=== PATIENT | female | born 1970 | race Caucasian/White ===

== ENCOUNTER 2025-02-17 09:56 | Inpatient (IN) | payer BC ==
[~2025-02-17] VITALS: Ht 167.6 cm; Wt 93.2 kg
--- NOTE | 2025-02-17 10:06 | Physician Documentation ---
History of Present Illness ~ Chief Complaint: Constipation Stated Complaint: PRESSURE IN ABD Time Seen by MD: 10:30 HPI This 54 yr old female presents to the ER due to issues with chronic constipation, worse x last three days. This is accompanied by nausea, vomiting, and epigastric pain with chills but no fever. Hx cholecystectomy. Has been using castor oil x last three days but remains constipated. She also endorses "left kidney pain" but denies dysuria. Admits to regular kratum use and notes hx of diabetes and Grave's disease. Admits to only taking half dose of thyroid medication recently due to cost. Medication Reconciliation Allergies: Coded Allergies: No Known Allergies (Unverified , 02/17/25) Physical Exam Vital Signs: Temperature: 98.3, Source: Temporal, Heart Rate: 82, Respiratory Rate: 16, BP: 124/75, Pulse Oximetry: 99, Weight: 93.180 Oxygen Flow Rate: 0 Physical Exam General: Alert, no apparent distress. Neck: Full range of motion. Respiratory: Lungs clear, no respiratory distress. Chest: No accessory muscle use. Cardiovascular: Regular rate and rhythm, no murmurs. Gastrointestinal: Soft,mildly TTP upper abd, nondistended. Bowels sounds present. No CVA tenderness. Extremities: Normal range of motion, no deformity. Neurologic: Oriented x4. Psychiatric: Normal mood and affect. Skin: Normal color, warm and dry. No edema, no ecchymosis. Progress Results/Orders Results/Orders Orders - RENEE YATES DIRECTOR MEDICAL SCIENCE Abdomen,Single View(Kub) (02/17/25 10:03) Bisacodyl Delayed-Release Tab (Dulcolax (02/17/25 11:05) * Iv Access / Saline Lock * (02/17/25 11:16) * Administer Enema * (02/17/25 11:41) Page Hospitalist (02/17/25 12:03) Completed Orders - RENEE YATES DIRECTOR MEDICAL SCIENCE Abdomen,Single View(Kub) (02/17/25 10:03) Urinalysis, Cult If Indicated (02/17/25 10:03) Lipase (02/17/25 10:03) CMP (02/17/25 10:03) Cbc/Diff (02/17/25 10:03) Magnesium Hydrox Oral Susp. (Milk Of Mag (02/17/25 11:05) TSH (02/17/25 10:37) Electrocardiogram (02/17/25 ) Normal Saline 1000ml (Sodium Chloride 10 (02/17/25 11:20) Ondansetron Inj. (Zofran 4mg/2ml Vial) (02/17/25 11:20) MG (02/17/25 10:37) Hydrocodone/Apap 5/325mg Tab ([place] 5/32 (02/17/25 11:45) Medications Received in ER Medications (Trade) Dose Ordered Sig/William Route PRN Reason Start Time Stop Time Status Last Admin Dose Admin (milk of magnesia oral suspension) 30 ml ONCE ONCE PO 02/17/25 11:05 02/17/25 11:06 DC 02/17/25 11:36 30 ML (Dulcolax tablet) 5 mg ONCE PRN PO constipation 02/17/25 11:05 02/17/25 12:21 5 MG Sodium Chloride 1,000 ml @ 1,000 mls/hr ONCE ONCE IV 02/17/25 11:20 02/17/25 12:19 DC 02/17/25 11:35 1,000 MLS/HR (Zofran 4mg/2ml vial) 4 mg ONCE ONCE IV 02/17/25 11:20 02/17/25 11:21 DC 02/17/25 11:35 4 MG ([place] 5/325mg tablet) 1 tab ONCE ONCE PO 02/17/25 11:45 02/17/25 11:46 DC 02/17/25 12:21 1 TAB Vital Signs 02/17/25 10:00 Temp 98.3 Pulse 82 Resp 16 B/P (MAP) 124/75 Pulse Ox 99 O2 Flow Rate 0 Laboratory Tests Test 02/17/25 10:10 02/17/25 10:37 Urine Specimen Description Cln catch midstream Urine Color Yellow Urine Clarity Clear Urine pH 6.0 Urine Specific [place] <=1.005 Urine Protein Negative Urine Glucose (UA) Negative Urine Ketones Negative Urine Occult Blood Negative Urine Nitrite Negative Urine Bilirubin Negative Urine Urobilinogen 0.2 Urine Leukocyte Esterase Negative Urine Culture Indicated Not ind Volume Urine Centrifuged 10 ml Urine Comment White Blood Count 7.3 Red Blood Count 4.33 Hemoglobin 13.4 Hematocrit 38.5 Mean Corpuscular Volume 88.8 Mean Corpuscular Hemoglobin 31.0 Mean Corpuscular Hemoglobin Concent 34.9 Red Cell Distribution Width 14.5 Platelet Count 289 Mean Platelet Volume 8.7 Neutrophils (%) (Auto) 57.6 Lymphocytes (%) (Auto) 35.1 Monocytes (%) (Auto) 3.8 Eosinophils (%) (Auto) 2.9 Basophils (%) (Auto) 0.6 Neutrophils # (Auto) 4.2 Lymphocytes # (Auto) 2.6 Monocytes # (Auto) 0.3 Eosinophils # (Auto) 0.2 Basophils # (Auto) 0.0 CBC Comment Sodium Level 126 L Potassium Level 4.5 Chloride Level 92 L Carbon Dioxide Level 26.8 Anion Gap 7 L Blood Urea Nitrogen 5 L Creatinine 1.08 H Estimated GFR/1.73 m2 53 BUN/Creatinine Ratio 4.6 L Glucose Level 324 H Calcium Level 8.4 L Magnesium Level 1.6 Total Bilirubin 0.6 Aspartate Amino Transf (AST/SGOT) 21 Alanine Aminotransferase (ALT/SGPT) 22 Alkaline Phosphatase 72 Total Protein 7.3 Albumin 3.8 Globulin 3.5 Albumin/Globulin Ratio 1.1 Lipase 9 L Thyroid Stimulating Hormone (TSH) 88.82 H Chemistry Comments EKG/XRAY/CT/US/VASC/MRI EKG : Additional Comment 1120 EKG interpreted to show RSR rate of 67. No ectopy. No ST segment elevation. QTC 448 ms. Abdominal X-Ray : Additional Comment [facility] [address] [place] [address] DIAGNOSTIC RADIOLOGY Patient: ROMAN RAMIREZ Medical Record: [id number] [facility] : 1970, Age: 54 Sex: Female Location: ER Patient Status: REG ER Service Date/Time: 02/17/251002 Ordering Physician: RENEE YATES DIRECTOR MEDICAL SCIENCE Exam: ABDOMEN,SINGLE VIEW(KUB) KUB INDICATION: three days of constipation FINDINGS: The bowel gas pattern is unremarkable. Fecal loading in the descending colon sigmoid colon and rectum.. No abnormal masses or calcifications. IMPRESSION: 1. Left colonic fecal loading is present Electronically Signed by:JOE BAILON MD Date & Time: 02/17/251107 Dictated by: JOE BAILON MD Dictation date and time: 02/17/251107 Primary Care Provider: NO PRIMARY CARE PROVIDER cc: RENEE YATES DIRECTOR MEDICAL SCIENCE ~ Medical Decision Making Additional Comments 54 yr old female presents primarily due to upper abd pain and constipation. She notes hx of hypothyroidism, diabetes, and kratum use. KUB shows constipation. Labs with no elevated WBC or abnormal lipase, so no CT scan abd done. Found to have hyponatremia at 126-considered symptomatic due to nausea, vomiting. Has recently reduced dose of thyroid med reportedly "due to cost" and is found to have a markedly elevated TSH over 80. Hospitalist paged to consult for admission. Was medicated in ER for constipation with enema, po milk of mangesia and oral dulcolax. Departure Time of Disposition: 12:23 Disposition: 09 ADMITTED INPATIENT Admitted to Inpatient Unit: yes, to hospitalist Impression: Primary Impression: Constipation Additional Impressions: Hyponatremia Hypothyroid Referrals: NO PRIMARY CARE PROVIDER (PCP) Signature Scribe Signature: no scribe Attestation: The note accurately reflects work and decisions made by me.Renee Johnson NP 02/17/25 10:06 RENEE YATES NP Feb 17, 2025 10:06
[2025-02-17 10:48] LABS: MEAN PLATELET VOLUME 8.7 FL (7.4-10.4); RED CELL DISTRIBUTION WIDTH 14.5 % (11.5-14.5)
[2025-02-17 11:04] LABS: CREATININE 1.08 MG/DL (0.40-0.90); TOTAL CARBON DIOXIDE 26.8 MMOL/L (24-32); eCRCL 57 ML/MIN; eGFR 53 ML/MIN
--- NOTE | 2025-02-17 11:11 | RADIOLOGY REPORT ---
KUB INDICATION: three days of constipation FINDINGS: The bowel gas pattern is unremarkable. Fecal loading in the descending colon sigmoid colon and rectum.. No abnormal masses or calcifications. IMPRESSION: 1. Left colonic fecal loading is present
--- NOTE | 2025-02-17 11:22 | ELECTROCARDIOGRAPH REPORT ---
[facility] Test Date: 2025-02-17 Test Time: 11:20:18 Pat Name: ROMAN RAMIREZ Department: [facility]-ER Patient ID: [facility]-[id number] Room: ORTHO 4020 Gender: F [employer]: : 1970 Requested By: GERARDO YATES Order Number: [id number] Reading MD: Dr. Otto Ogden Measurements Intervals Stanley Rate: 67 P: 66 NM: 264 QRS: 84 QRSD: 112 T: 89 QT: 424 QTc: 448 Interpretive Statements Sinus rhythm Prolonged NM interval Borderline intraventricular conduction delay Low voltage, precordial leads Nonspecific T abnormalities, lateral leads Electronically Signed On 02-17-2025 18:13:[address] Otto Ogden Please click the below link to view image of tracing.
[2025-02-17] MEDS: normal saline 1000ml 1,000 ML IV ONE (11:35)
[2025-02-17] MEDS: ondansetron/PF 4mg/2ml inj IV ONE (11:35)
[2025-02-17] MEDS: magnesium hydroxide 30ml (MOM) UD suspension PO ONE (11:36)
[2025-02-17 11:51] LABS: LEUKOCYTE ESTERASE ,URINE NEGATIVE (Neg); NITRITES, URINE NEGATIVE (Neg); OCCULT BLOOD,URINE NEGATIVE (Neg)
[2025-02-17 12:02] LABS: UA COLLECTION TYPE CLN CATCH MIDSTREAM
[2025-02-17] MEDS: bisacodyl 5mg tablet.DR PO PRN (12:21)
[2025-02-17] MEDS: HYDROcodone/acetaminophen 5mg/325mg tablet PO ONE (12:21)
[2025-02-17] MEDS ORDERED: magnesium Cl slow-release 64mg tablet PO PRN (12:25)
[2025-02-17] MEDS ORDERED: magnesium sulf-water 4G/100mL 100 ML IV PRN (12:25)
[2025-02-17] MEDS ORDERED: potassium Cl 40MEQ/1/2NS 520ml 520 ML IV PRN (12:25)
[2025-02-17] MEDS ORDERED: ondansetron/PF 4mg/2ml inj IV PRN (12:25)
[2025-02-17] MEDS ORDERED: potassium Cl 20 mEq SR tablet PO PRN ×2 (12:25)
[2025-02-17] MEDS ORDERED: magnesium sulf-water 2g/50mL 50 ML IV PRN (12:25)
[2025-02-17] MEDS ORDERED: mag hydrox/Alum hydrox/simeth 30ml oral suspension PO PRN (12:25)
[2025-02-17] MEDS: normal saline 1000ml 1,000 ML IV SCH (12:35)
[2025-02-17] MEDS ORDERED: iohexol 300mg/ml 100ml inj. ONE (13:15)
--- NOTE | 2025-02-17 13:57 | RADIOLOGY REPORT ---
CT abdomen and pelvis done with contrast INDICATION: bowel obstruction, abd pain, n/v TECHNIQUE: Following IV administration of 100 mL omnipaque 300 Serial axial images were performed thr ough the abdomen and pelvis and then reformatted in the sagittal and coronal plane. All CT scans at [facility] are performed using dose modulation techniques as appropriate to a performed exa m including the following: Automated exposure control was utilized; adjustment of the MA and/or KvP a ccording to patient size; and use of iterative reconstruction technique. FINDINGS: Liver and spleen are normal in size without focal mass. No renal masses, stones or hydronep hrosis. No masses or enlargement of the adrenal glands or pancreas. Gallbladder has been removed. Th ere is slight dilatation of the common bile duct. Mild distention of small bowel loops.There is a mod est amount of fecal material throughout the colon. The appendix is hyperdense possibly due to the pre sence of small fecaliths. No free fluid. Within the pelvis, bladder is smooth walled without stones. No abnormal masses or fluid collections. IMPRESSION: 1. Moderate fecal loading throughout the colon. 2. Although there is a modest ileus gas pattern no definite evidence of obstruction or active disease is present abdomen or pelvis. 3. The appendix does not appear inflamed although it contains small fecalith Computed Tomographic Radiation Dosimetry Report: Total CTDI vol = 23 mGy Total DLP = 12 L1 mGy-cm Low dose protocols were performed.
--- NOTE | 2025-02-17 14:10 | HISTORY AND PHYSICAL ---
History & Physical Providers to CC ~ History of Present Illness Reason for Admit\Complaint: Hyponatremia History of Present Illness Nidhi Ramon is a 54-year-old female with a past medical history of T1DM, Graves disease s/p radioactive iodine therapy on levothyroxine, and chronic constipation who presented to the ED with chief complaint of nausea, one episode of vomiting, and upper quadrant abdominal pain x 3 days. Patient reports chronic constipation with last bowel movement being two days ago. Patient denies prior [place]/CAD, CVA, cardiac arrhythmia, DVT/PE, or GIB. Patient denies chest pain, palpitations, shortness of breath, diarrhea, fever, chills, blurry vision, unilateral weakness, headache. Initial diagnostic findings are notable for moderate hyponatremia, profoundly elevated TSH with low T4, abnormal renal function, CT revealing moderate fecal throughout the colon without evidence of bowel obstruction and otherwise unremarkable. Patient reports taking half of prescribed dose of levothyroxine which becomes 100mcg daily due to cost of medication. Patient is to be admitted for further workups and treatment. Allergies: Coded Allergies: wheat (Verified Allergy, Mild, 02/17/25) avocado (Verified Adverse Reaction, Mild, 02/17/25) banana (Verified Adverse Reaction, Mild, 02/17/25) Uncoded Allergies: canned tuna (Adverse Reaction, Mild, 02/17/25) cherries (Adverse Reaction, Mild, 02/17/25) Past Medical History Past Medical History Graves disease s/p radial active iodine therapy T1DM Chronic constipation Past Surgical History Surgical History Comment Cholecystectomy Tubal ligation Past Social History Social History Comment Alcohol: Denies Tobacco: 20 pack year history Illicit drug use: Denies Living situation: Lives at home with spouse ROS ROS Other than positives in HPI, all 14 review of systems are negative Exam Vitals: Vital Signs Date Time Temp Pulse Resp B/P (MAP) Pulse Ox O2 Delivery O2 Flow Rate FiO2 02/17/25 10:00 98.3 82 16 124/75 99 0 General: A&Ox 3, NAD HEENT: Normocephalic, PERRLA Neck: Supple, trachea midline, no JVD Chest: Clear to auscultation bilaterally Cardiovascular: RRR, S1&S2 Abdomen: Tender right and medial upper quadrant abdomen with palpation; negative rebound tenderness Extremities: No cyanosis/clubbing/or edema Central Nervous System: CN II-XII intact, no focal deficits Musculoskeletal: No paraspinal muscle tenderness, no muscle spasm Skin: Warm and intact Diagnostic Data Last Recorded Lab Results: 02/17/25 1037 02/17/25 1037 Counseling Services Smoking & Tobacco Cessation: > 10 Minutes Additional Plan Assessment Hyponatremia likely 2/2 hypothyroidism Graves disease s/p radioactive iodine therapy Hypothyroidism RICHI vs CKD Constipation Dehydration T1DM Hyperglycemia s/p cholecystectomy Nicotine dependence -reports 1 episode of vomiting, abd pain, reports taking levothyroxine 100mcg daily which is half of prescribed dose -serum Na 126, plasma osm 282, urine osm 141, urine Na 25, serum protein wnl, TGL 177, TSH 88, T4 0.2, lipase wnl, wbc wnl, afebrile, UA negative, CT revealing moderate fecal throughout the colon without evidence of bowel obstruction and otherwise unremarkable. Plan -IVNS, one dose NaCl tab, no s/s of myxedema coma hence will use oral levothyroxine, hyper/hypoglycemic protocol, Senna-S, prn enema, nicotine patch -follow A1c, lipid panel, osmolality studies, strict I&Os, Lantus, preprandial & postprandial -pending med rec DVT/VTE prophylaxis: heparin Code status: Full code I spent a total of 35 minutes discussing Advanced Care Planning measures with the patient. Advance care planning: Discussed with patient the importance of advance care planning in case of emergent situation. We discussed various resuscitative measures/ ACP with the patient at the time of admission. Patient voiced understanding and patient has decided on a full code status. Date of Service: Feb 17, 2025 Billing Provider: INDIGO LOUISE Common Visit Codes: [id number] INP/OBS CARE (HIGH) Secondary Visit Codes: [id number] CARE PLAN 30 MINUTES INDIGO LOUISE Feb 17, 2025 14:10
[2025-02-17] MEDS ORDERED: mineral oil 133ml enema RC PRN (14:20)
[2025-02-17] MEDS ORDERED: glucagon, human recombinant 1mg kit SUBCUT PRN (14:20)
[2025-02-17] MEDS ORDERED: dextrose 50%-water 50ml dispensing syringe IV PRN ×2 (14:20)
[2025-02-17] MEDS ORDERED: DEXTROSE 15 GM of carb/4 tabs (each vial/BOTTLE has 4 tablets) PO PRN ×2 (14:20)
[2025-02-17 14:29] LABS: OSMOLALITY UA 141 MOSM/K (50-1400)
[2025-02-17 14:30] LABS: OSMOLALITY 282 MOSM/K (280-300)
[2025-02-17 14:37] LABS: CHOL/HDL RATIO 3.8 (0.00-4.99)
[2025-02-17 14:39] LABS: LDL CHOLESTEROL 218 MG/DL (50-100)
[2025-02-17 14:46] LABS: CREATININE,URINE RANDOM 38.0 MG/DL; TOTAL PROTEIN,URINE RANDOM < 6.0 MG/DL; UA UREA RANDOM 130.0 MG/DL
[2025-02-17 14:47] LABS: GLUCOSE,URINE RANDOM 8 MG/DL
[2025-02-17] MEDS: nicotine 14mg patch - 24hr TD ONE (15:24)
[2025-02-17 15:25] VITALS: RESP 16; O2SAT 96
[2025-02-17] MEDS: levoTHYROXINE 100mcg tablet PO ONE ×2 (15:26→17:34)
[2025-02-17 15:45] VITALS: BP 147/78; PULSE 71; RESP 14; TEMP 98.1; O2SAT 96
[2025-02-17] MEDS ORDERED: LEVO200T8 PO (16:12)
[2025-02-17] MEDS ORDERED: NOVRI SQ (16:12)
[2025-02-17] MEDS ORDERED: INSU100I31 SUBCUT (16:12)
[2025-02-17] MEDS: heparin, porcine 5000 units/ml vial SQ SCH (16:50)
[2025-02-17] MEDS: INSULIN LISPRO 100 UNIT/ML INSULN.PEN MULTI-DOSE SQ SCH ×3 (17:00→19:13)
[2025-02-17] MEDS ORDERED: INSULIN LISPRO 100 UNIT/ML INSULN.PEN MULTI-DOSE SQ SCH (17:20)
[2025-02-17 18:00] VITALS: BP 137/71; PULSE 67; RESP 15; TEMP 98.1; O2SAT 95
[2025-02-17 19:55] VITALS: RESP 16; O2SAT 96
[2025-02-17] MEDS: K and/or MAG REPLACEMENT MC SCH (20:00)
[2025-02-17] MEDS ORDERED: insulin glargine (Lantus) pen - multi-dose SQ SCH (21:00)
[2025-02-17] MEDS: insulin glargine (Lantus) pen - multi-dose SQ SCH (21:00)
[2025-02-17] MEDS: docusate sod 100mg capsule PO SCH (21:28)
[2025-02-17 22:00] VITALS: BP 102/56; PULSE 70; RESP 15; TEMP 97.5; O2SAT 98
[2025-02-17] MEDS: HYDROcodone/acetaminophen 10/325mg tab PO PRN (22:08)
[2025-02-18] MEDS: magnesium hydroxide 30ml (MOM) UD suspension PO PRN (05:00)
[2025-02-18 05:36] LABS: MEAN PLATELET VOLUME 9.1 FL (7.4-10.4); RED CELL DISTRIBUTION WIDTH 14.5 % (11.5-14.5)
[2025-02-18 06:00] VITALS: BP 142/75; PULSE 74; RESP 12; TEMP 97.4; O2SAT 98
[2025-02-18 06:06] LABS: CREATININE 1.05 MG/DL (0.40-0.90); TOTAL CARBON DIOXIDE 27.9 MMOL/L (24-32); eCRCL 59 ML/MIN; eGFR 55 ML/MIN
[2025-02-18] MEDS ORDERED: levoTHYROXINE 100mcg tablet PO SCH (07:00)
[2025-02-18] MEDS: INSULIN LISPRO 100 UNIT/ML INSULN.PEN MULTI-DOSE SQ ONE (07:03)
[2025-02-18 07:10] VITALS: RESP 12; O2SAT 98
[2025-02-18] MEDS: nicotine 14mg patch - 24hr TD SCH (09:27)
[2025-02-18 10:00] VITALS: BP 118/63; PULSE 67; RESP 16; TEMP 98.1; O2SAT 99
--- NOTE | 2025-02-18 11:56 | PROGRESS NOTE ---
Daily Progress Note Providers to CC ~ Antibiotic Timeout Antibiotic Ordered?: Yes Subjective No acute events overnight. Patient examined at bedside. No new complaints, not in acute distress. Patient denies chest pain, sob, palpitations, abdominal pain, n/v/d. Vss, labs notable for serum sodium uptrend of 11mmol/L. NS discontinued, D5W started. Objective Vital Signs Date Time Temp Pulse Resp B/P (MAP) Pulse Ox O2 Delivery O2 Flow Rate FiO2 02/18/25 06:00 97.4 74 12 142/75 (97) 98 Room Air 02/17/25 10:00 0 Result Diagram: 02/18/25 0448 02/18/25447 Physical Exam General: A&Ox 3, NAD HEENT: Normocephalic, PERRLA Neck: Supple, trachea midline, no JVD Chest: Clear to auscultation bilaterally Cardiovascular: RRR, S1&S2 Abdomen: Soft and nontender Extremities: No cyanosis/clubbing/or edema Central Nervous System: CN II-XII intact, no focal deficits Musculoskeletal: No paraspinal muscle tenderness, no muscle spasm Skin: Warm and intact Problem\Assessment\Plan Assessment Hyponatremia likely 2/2 hypothyroidism Graves disease s/p radioactive iodine therapy Hypothyroidism RICHI vs CKD Constipation Dehydration T1DM Hyperglycemia s/p cholecystectomy Nicotine dependence -reports 1 episode of vomiting, abd pain, reports taking levothyroxine 100mcg daily which is half of prescribed dose -serum Na 126, plasma osm 282, urine osm 141, urine Na 25, serum protein wnl, TGL 177, TSH 88, T4 0.2, lipase wnl, wbc wnl, afebrile, UA negative, CT revealing moderate fecal throughout the colon without evidence of bowel obstruction and otherwise unremarkable. -02/18: serum sodium uptrend of 11mmol/L, made BM Plan -IVNS, one dose NaCl tab, no s/s of myxedema coma hence will use oral levothyroxine, hyper/hypoglycemic protocol, Senna-S, prn enema, nicotine patch -follow A1c, lipid panel, osmolality studies, strict I&Os, Lantus, preprandial & postprandial -02/18: dc NS, start D5W, lantus dose adjusted DVT/VTE prophylaxis: heparin Code status: Full code Date of Service: Feb 18, 2025 Billing Provider: DANI,INDIGO S CONCRETE CURER Common Visit Codes: [id number] INP/OBS CARE(HIGH) INDIGO LOUISE CONCRETE CURER Feb 18, 2025 11:56
[2025-02-18 18:00] VITALS: BP 121/66; PULSE 67; RESP 3; TEMP 97.7; O2SAT 99
[2025-02-18] MEDS: insulin glargine (Lantus) pen - multi-dose SQ SCH (21:00)
[2025-02-18] MEDS ORDERED: insulin glargine (Lantus) pen - multi-dose SQ SCH (21:00)
[2025-02-18 22:00] VITALS: BP 118/56; PULSE 64; RESP 16; TEMP 98.3; O2SAT 98
[2025-02-19 05:31] LABS: MEAN PLATELET VOLUME 9.3 FL (7.4-10.4); RED CELL DISTRIBUTION WIDTH 14.5 % (11.5-14.5)
[2025-02-19 06:00] VITALS: BP 119/71; PULSE 66; RESP 15; TEMP 98.2; O2SAT 95
[2025-02-19 06:01] LABS: CREATININE 1.01 MG/DL (0.40-0.90); TOTAL CARBON DIOXIDE 29.4 MMOL/L (24-32); eCRCL 61 ML/MIN; eGFR 58 ML/MIN
[2025-02-19 07:43] LABS: EOSINOPHILS % (MANUAL) 6.0 % (0-6); LYMPHOCYTES % (MANUAL) 53.0 % (21-51); MONOCYTES % (MANUAL) 2.0 % (2-12); NEUTROPHILS % (MANUAL) 39.0 % (42-75); PLATELET ESTIMATE NORMAL
[2025-02-19 10:00] VITALS: BP 112/72; PULSE 65; RESP 18; TEMP 98.3; O2SAT 97
[2025-02-19] MEDS ORDERED: ATOR20TA66 PO (12:11)
[2025-02-19] MEDS ORDERED: LISI2.5T14 PO (12:11)
--- NOTE | 2025-02-19 14:01 | DISCHARGE SUMMARY ---
Discharge Summary Providers to CC ~ Discharge Summary Admission Diagnosis: Symptomatic hyponatremia Hospital Course DATE OF ADMISSION: 02/17/2025 DATE OF DISCHARGE:02/19/2025 Discharge Diagnosis\Comment: Hyponatremia Operations\Procedures: Abdomen/ Pelvis CT Consultants: None Complications: None Condition on DC: Stable New Medications: Atorvastatin Calcium (Atorvastatin Calcium) 20 Mg Tablet 40 MG PO HS for 30 Days, #30 TAB Lisinopril (Lisinopril) 2.5 Mg Tablet 2.5 MG PO DAILY for 30 Days, #30 TAB Continued Medications: Insulin Glargine,Hum.rec.anlog (Basaglar Kwikpen U-100) 100 Unit/Ml (3 Ml) Insuln.pen 10 SUBCUT BID Insulin Regular, Human (Novolin R) 100 Unit/Ml Vial 0 SQ for sliding scale, EACH Levothyroxine Sodium (Levothyroxine Sodium) 200 Mcg Tablet 1 TAB PO DAILY Discharge Summary: Reason for admission: 54 years old female with a history of type 1 diabetes mellitus, Graves disease, status post radioactive iodine treatment presented to the ER for evaluation of nausea and vomiting as well as right upper quadrant pain x3 days. Patient reported chronic constipation at the time of admission Please refer to admission H&P for more details Hospital course: Patient was admitted on the monitored floor under hospital course as follows 1. Hyponatremia: Resolved with IV hydration. Likely due to volume depletion and dehydration. 2. NIDDM uncontrolled: Patient has a hemoglobin A1c of 8.1. Treated with correctional dose insulin and carb controlled diet 3. Hyperlipidemia: Continued on atorvastatin 4. Graves disease: Patient has a radioactive iodine therapy. Continued on levothyroxine Outpatient follow up recommended 5. Hypertension: Continued on lisinopril. Discharge exam: Examined the patient on the day of discharge. Gen. awake alert oriented asymptomatic HEENT: Normocephalic, atraumatic, pupils round reactive to light and accommodation, extraocular movements are intact, sclera anicteric, conjunctiva pinkish, moist oral mucosa, no rash or ulcers. NECK: Supple, no JVD, trachea midline. CHEST: Clear to auscultation, no wheezes crackles or rhonchi. HEART: Regular rate rhythm, no murmur gallop or rub. ABDOMEN: Soft, nontender, no organomegaly. EXTREMITIES: No cyanosis clubbing or edema. NEURO EXAM: Grossly nonfocal. MUSCULOSKELETAL : No joint swelling or deformities. SKIN: No rash or ulcers noted. Disposition: Home *Problems/Diagnosis: (1) Hyponatremia Status: Acute Total Time Spent on D/C: > 30 Minutes Date of Service: Feb 19, 2025 Billing Provider: STEPH CONTRERAS MD Common Visit Codes: [id number]/OBS DISCH DAY >30min STEPH CONTRERAS MD Feb 19, 2025 14:01
== END 2025-02-19 14:05 | disposition home or self-care (01) | DRG 638 ==
LOC: ER 09:57 → ED HOLD 12:32 → ORTHO 4S 15:08
PROVIDERS: ADMIT Nurse Practitioner Family; ATTEND Nurse Practitioner Family
PROC: BW211ZZ Computerized Tomography (CT Scan) of Abdomen and Pelvis using Low Osmolar Contrast (ICD-10-PCS; principal; 2025-02-17)
DX: E10.65 Type 1 diabetes mellitus with hyperglycemia (principal); E87.1 Hypo-osmolality and hyponatremia; N17.9 Acute kidney failure, unspecified; E86.0 Dehydration; E78.5 Hyperlipidemia, unspecified; E03.9 Hypothyroidism, unspecified; F17.200 Nicotine dependence, unspecified, uncomplicated; E05.00 Thyrotoxicosis with diffuse goiter without thyrotoxic crisis or storm; I10 Essential (primary) hypertension; K59.09 Other constipation; Z90.49 Acquired absence of other specified parts of digestive tract; Z91.018 Allergy to other foods
CPT/HCPCS: 36415; 74018; 74177; 80053; 80061; 81003; 82570; 82945; 82948; 83036; 83690; 83735; 83930; 83935; 84133; 84156; 84300; 84439; 84443; 84480; 84540; 85007; 85025; 87081; 93005; 96361; 96374; 97116; 97161; 99285; G0378; J1644; J1815; J2405; J2470; J7030; J7070; Q9967